=== PATIENT | male | born 1955 | race Caucasian/White ===

== ENCOUNTER 2023-07-15 11:00 | Emergency (ER) | payer MEDICARE, SELFPAY ==
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
[2023-07-15 11:04] VITALS: BP 191/114; PULSE 87; RESP 16; TEMP 36.8; O2SAT 98
[2023-07-15 11:43] LABS: Basophils Percent Auto 0.5 % (0.2-1.2); Eosinophils Absolute Auto 0.3 K/mm3 (0-0.3); Eosinophils Percent Auto 3.9 % (0-4.4); Hematocrit 40.7 % (42.0-52.0); Hemoglobin 13.7 g/dL (14.0-18.0); Immature Granulocyte Absolute 0.22 K/mm3 (0.00-0.031); Immature Granulocyte Percent A 2.8 % (0-0.5); Lymphocytes Absolute Auto 1.04 K/mm3 (0.9-3.2); Mean Corpuscular HGB Conc 33.7 g/dl (32-36); Mean Corpuscular Hemoglobin 30.5 pg (26-34); Mean Corpuscular Volume 90.6 fl (80-100); Mean Platelet Volume 9.5 fl (7.4-10.4); Monocytes Absolute Auto 0.8 K/mm3 (0.1-0.6); Monocytes Percent Auto 10.3 % (2.6-8.5); Neutrophils Absolute Auto 5.6 K/mm3 (1.3-6.7); Neutrophils Percent Auto 69.5 % (45.5-73.1); Platelet Count Result 177 k/mm3 (150-375); Red Blood Count 4.49 M/mm3 (4.6-6.20); Red Cell Distribution Width 12.8 % (11.5-14.5)
[2023-07-15 11:53] LABS: Alanine Aminotransferase 22 U/L (6-50); Albumin Level 3.7 g/dL (3.5-5.1); Alkaline Phosphatase 122 U/L (38-126); Anion Gap 8 mmol/L (8-16); Aspartate Amino Transferase 33 U/L (17-59); Bilirubin,Total 0.4 mg/dL (0.2-1.3); Blood Urea Nitrogen 31 mg/dL (9-20); Calcium 8.7 mg/dL (8.4-10.2); Carbon Dioxide 22 mmol/L (22-30); Chloride 105 mmol/L (98-107); Estimated CRCL calculation 45 ml/min; Estimated Glomerular Filt Rate 51; Glucose 146 mg/dL (65-110); Potassium 3.8 mmol/L (3.4-5.0); Sodium 135 mmol/L (137-145)
[2023-07-15 12:01] VITALS: BP 194/103; PULSE 84; RESP 15; O2SAT 97
[2023-07-15 12:13] LABS: Partial Thromboplastin Time 26.5 SECONDS (22.3-36.8); Prothrombin Time 13.1 Seconds (11.1-14.7)
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
[2023-07-15 12:48] VITALS: BP 178/118; PULSE 91; RESP 17
[2023-07-15] MEDS: ceFAZolin 1 GM/NS 50 ML 1 GM/50 ML BAG 100 GM (12:58)
[2023-07-15 13:13] VITALS: BP 180/105; PULSE 92; RESP 20; O2SAT 99
[2023-07-15] MEDS: HYDROmorphone HCL INJ (*CRX) 1 MG/ML SYR 0.5 MG IV PUSH (13:46)
== END 2023-07-15 14:00 | disposition short-term general hospital (02) ==
PROVIDERS: Preventive Medicine Aerospace Medicine; Emergency Provider Emergency Medicine
DX: S01.01XA Laceration without foreign body of scalp, initial encounter (principal); J32.9 Chronic sinusitis, unspecified; R90.82 White matter disease, unspecified; J84.9 Interstitial pulmonary disease, unspecified; I77.819 Aortic ectasia, unspecified site; K74.60 Unspecified cirrhosis of liver; M47.812 Spondylosis without myelopathy or radiculopathy, cervical region; M19.012 Primary osteoarthritis, left shoulder; W28.XXXA Contact with powered lawn mower, initial encounter
CPT/HCPCS: 36415; 70450; 71260; 72125; 73030; 74177; 80053; 85025; 85610; 85730; 86850; 86900; 86901; 96365; 96375; 99285; J0690; J1170; Q9967